=== PATIENT | female | born 1950 | race Caucasian/White ===

== ENCOUNTER 2017-01-25 21:48 | Emergency (ER) | payer MEDICARE, OTHER ==
[~2017-01-25] VITALS: Ht 165.1 cm; Wt 68.0 kg
[2017-01-25 21:49] VITALS: BP 138/68
[2017-01-25] MEDS ORDERED: CALC600T57 PO (22:00)
[2017-01-25] MEDS ORDERED: MUCI600T34 PO (22:00)
[2017-01-25] MEDS ORDERED: VITA200T4 PO (22:00)
[2017-01-25] MEDS ORDERED: BREO1INH3 INH (22:00)
[2017-01-25] MEDS ORDERED: B COTAB6 PO (22:00)
[2017-01-25] MEDS ORDERED: VITATAB74 PO (22:00)
[2017-01-25] MEDS ORDERED: PROP1TAB29 PO (22:00)
[2017-01-25] MEDS ORDERED: MYSO50TA5 PO (22:00)
[2017-01-25] MEDS ORDERED: ACYC200CA PO (22:00)
[2017-01-25] MEDS ORDERED: OMEG1CAP16 PO (22:00)
[2017-01-25] MEDS ORDERED: [UNRECOGNIZED DRUG - CODE] XX (22:00)
[2017-01-25] MEDS ORDERED: PRED20TA PO (22:00)
[2017-01-25] MEDS ORDERED: ASPI81CH32 PO (22:00)
[2017-01-25] MEDS ORDERED: PROA1AER INH (22:00)
[2017-01-25] MEDS ORDERED: HYDRLIQ11 PO (22:00)
== END 2017-01-25 22:39 | disposition left against medical advice (07) ==
LOC: M ED 22:34
DX: R05 Cough (principal); Z53.29 Procedure and treatment not carried out because of patient's decision for other reasons

== ENCOUNTER → 2017-01-25 | Outpatient (REF) | payer MEDICARE, OTHER ==
[~2017-01-25] MED LIST: ACYC200CA PO; ALB2.5NEB INH; ASPI1TAB PO; ASPI81CH32 PO; B COTAB6 PO; BOTO200I INJ; BREO1INH3 INH; BUTACAP3 PO; CALC600T57 PO; DEXA0.5E2 IVP; FLUC10TA PO; GUAI5ELAC PO; HYDRLIQ11 PO; LEVA750T PO; MOXI1TAB PO; MUCI600T34 PO; MYSO50TA5 PO; OMEG100011 PO; OMEG1CAP16 PO; PRED10TA PO; PRED20TA PO; PRIM50TA6 PO; PROA1AER INH; PROP1TAB29 PO; VITA20008 PO; VITA200T4 PO; VITACAP8 PO; VITATAB74 PO; [UNRECOGNIZED DRUG - CODE] XX
== END ==
LOC: M LAB REF 12:49
PROVIDERS: ATTEND Nurse Practitioner Women's Health
DX: J47.9 Bronchiectasis, uncomplicated (principal)

== ENCOUNTER → 2017-01-26 | Outpatient (REF) | payer MEDICARE, OTHER ==
[2017-01-30 15:08] LABS: L PNEUMOPHILIA 1-6 IgG <1:128 (<1:128); L PNEUMOPHILIA 1-6 IgM < 1:16 (< 1:16)
== END ==
LOC: M LAB REF 13:14
PROVIDERS: ATTEND Nurse Practitioner Adult Health
DX: R05 Cough (principal); J47.9 Bronchiectasis, uncomplicated

== ENCOUNTER 2017-01-29 14:03 | Inpatient (IN) | payer MEDICARE, OTHER ==
[~2017-01-29] VITALS: Ht 165.1 cm; Wt 52.5 kg
[~2017-01-29 14:03] MED LIST changes: -ALB2.5NEB INH; -ASPI1TAB PO; -BOTO200I INJ; -BUTACAP3 PO; -DEXA0.5E2 IVP; -FLUC10TA PO; -GUAI5ELAC PO; -LEVA750T PO; -MOXI1TAB PO; -OMEG100011 PO; -PRED10TA PO; -PRIM50TA6 PO; -VITA20008 PO; -VITACAP8 PO
[2017-01-29] MEDS ORDERED: MOXI1TAB PO (14:29)
[2017-01-29] MEDS ORDERED: DEXA0.5E2 IVP (14:29)
[2017-01-29] MEDS ORDERED: PRED10TA PO ×2 (14:29→19:07)
[2017-01-29] MEDS ORDERED: ALBUTEROL SULFATE 2.5 MG/0.5 ML INH NEB SOLN NEB ONE (14:45)
[2017-01-29 14:52] LABS: BASO % 0.1 % (0.0-1.0); EOS # 0.2 K/mm3 (0.0-0.50); LARGE UNSTAINED CELL % 0.2 % (0.0-4.0); LYMPH # 0.4 K/mm3 (1.5-4.5); LYMPH % 2.6 % (24.0-44.0); MEAN CORPUSCULAR HGB CONC 34.7 g/dl (32.0-36.5); MONO # 0.3 K/mm3 (0.0-0.8); MONO % 2.2 % (0.0-5.0); NEUTROPHILS # 13.1 K/mm3 (1.8-7.7); NEUTROPHILS % 93.8 % (36.0-66.0); PLATELET COUNT, AUTOMATED 369 k/mm3 (150-450); RED CELL DISTRIBUTION WIDTH 12.4 % (11.5-14.5)
[2017-01-29 14:59] LABS: ABG BASE EXCESS 1.5 (-2.0-2.0); ABG HCO3 25.1 MEQ/L (22.0-26.0); ABG PARTIAL PRESSURE CO2 36.2 mmHg (35.0-45.0); ABG PARTIAL PRESSURE O2 66.3 mmHg (75.0-100.0); ABG STANDARD HCO3 25.7 MEQ/L (22.0-26.0); ABG TOTAL CO2 26.2 MEQ/L (23.0-31.0); ABG pH (ARTERIAL) 7.459 UNITS (7.350-7.450)
--- NOTE | 2017-01-29 15:02 | REP ---
Chest one-view HISTORY: Cough Comparison: 01/27/2017 Patchy density is present in the right lower lobe consistent with atelectasis or infiltrate. The left lung is clear. The heart is normal in size. The pulmonary vasculature is normal in appearance. Impression: Right lower lobe atelectasis or infiltrate. Signed by Paul Chugn MD 01/29/2017 02:54 P
[2017-01-29 15:21] LABS: ANION GAP 8 MEQ/L (8-16); AST/SGOT 19 U/L (15-37); BLOOD UREA NITROGEN 6 MG/DL (7-18); CALCIUM LEVEL 8.5 MG/DL (8.8-10.2); CARBON DIOXIDE LEVEL 27 MEQ/L (21-32); CHLORIDE LEVEL 94 MEQ/L (98-107); CREATININE FOR GFR 0.61 MG/DL (0.55-1.02); GLOMERULAR FILTRATION RATE > 60.0 (>45); GLUCOSE, FASTING 146 MG/DL (80-110); POTASSIUM SERUM 4.1 MEQ/L (3.5-5.1); SODIUM LEVEL 129 MEQ/L (136-145)
[2017-01-29 15:22] LABS: ALBUMIN 2.9 GM/DL (3.2-5.2); ALBUMIN/GLOBULIN RATIO 0.81 (1.00-1.93); ALKALINE PHOSPHATASE 98 U/L (45-117); ALT/SGPT 57 U/L (12-78); BILIRUBIN,DIRECT 0.1 MG/DL (0.0-0.2); BILIRUBIN,TOTAL 0.3 MG/DL (0.2-1.0); TOTAL PROTEIN 6.5 GM/DL (6.4-8.2)
[2017-01-29] MEDS ORDERED: LevoFLOXacin IV 750 MG in APPROPRIATE DILUENT 1 EA IV ONE (16:45)
[2017-01-29] MEDS ORDERED: NS 500 ML IV ONE (17:00)
--- NOTE | 2017-01-29 18:19 | ECGEPIP ---
Stationary ECG Study [facility] - ED Test Date: 2017-01-29 Pat Name: YUSUF WATKINS Department: Room: - Gender: F Education Program Manager: MS : 1950 Requested By: ADONIS Rousseau Order Number: [id number] Reading MD: Xuan Bland Measurements Intervals [place] Rate: 76 P: 30 OR: 180 QRS: 3 QRSD: 92 T: 22 QT: 370 QTc: 417 Interpretive Statements SINUS RHYTHM NO PRIOR FOR COMPARISON Electronically Signed On 01-29-2017 18:18:54 EDT by Xuan Bland
[2017-01-29] MEDS ORDERED: PRIM50TA6 PO (19:00)
[2017-01-29] MEDS ORDERED: ASPI1TAB PO (19:00)
[2017-01-29] MEDS ORDERED: IPRATROPIUM 0.5MG/ALBUTEROL 2.5MG INH SOL UD 3ML (DUONEB)(J7620) NEB PRN (19:00)
[2017-01-29] MEDS ORDERED: ALB2.5NEB INH (19:03)
[2017-01-29] MEDS ORDERED: BREO1INH3 INH (19:03)
[2017-01-29] MEDS ORDERED: BOTO200I INJ (19:03)
[2017-01-29] MEDS ORDERED: BUTACAP3 PO (19:08)
[2017-01-29] MEDS ORDERED: VITACAP8 PO (19:09)
[2017-01-29] MEDS ORDERED: OMEG100011 PO (19:10)
[2017-01-29] MEDS ORDERED: VITA20008 PO (19:12)
[2017-01-29] MEDS ORDERED: GUAI5ELAC PO (19:15)
[2017-01-29] MEDS: IPRATROPIUM 0.5MG/ALBUTEROL 2.5MG INH SOL UD 3ML (DUONEB)(J7620) NEB SCH ×2 (20:00→23:53)
--- NOTE | 2017-01-29 20:41 | HPEPDOC ---
General Date of Admission Jan 29, 2017 at 18:48 Primary Care Physician: Vivian Barragan Other Providers Pulmonology: Dr. Andrea Richards Attending Physician: JAX CRAFT MD Chief Complaint The patient is a 66-year-old female admitted with a reason for visit of SOB. Source: Patient, Other (daughter) History of Present Illness PRIMARY CARE PROVIDER: Dr. Vivian Barragan CHIEF COMPLAINT: Cough, shortness of breath and worsening weakness HISTORY OF PRESENT ILLNESS: This is a 66-year-old female with past medical history of asthma, bronchiectasis that was recently diagnosed, bronchitis, essential tremor, skin cancer, who presented to the [facility] ED for a chief complaint of worsening cough, shortness of breath, and generalized weakness. Symptoms began around 2 weeks ago initially with a cough that progressively worsened and did not get any better. Patient also developed shortness of breath that had progressively worsened as well, has to sleep in a recliner instead of her bed as she cannot lay flat without a cough, and wakes up in the middle the night short of breath. On January 19, patient reports she went to the urgent care, was diagnosed with bronchitis. Then on January 26, patient went to the pulmonology office and saw the PA at Dr. Richards's office, labs were taken and are still pending, a chest x-ray done there had shown a problem with the left lower lobe with "left lower lobe sacs that were collapsed" as per daughter. At the office, patient was given an unspecified antibiotic, prescribed prednisone, and a cough syrup with codeine. Patient states she had started ciprofloxacin on January 27. Cough got even worse and the patient went to [facility] in [facility] on January 28 and was told that she was on the wrong antibiotic. Was diagnosed with pneumonia there, ciprofloxacin and Tessalon Perles were stopped, and the patient was started on Avelox and Robitussin AC for suspected pneumonia on chest x-ray. Was recommended to rest and drink plenty of fluids over the weekend. Was given 9 tablets of Avelox. So far, has taken 2 doses of Avelox. Patient has also been taking the prednisone which she states alleviates her coughing symptoms. Patient reports that she has chest wall pain after coughing, feels very weak even though she exercises regularly when she is not sick and drinks plenty of fluids even now. He denies fevers, chills, cardiac chest pain, nausea, vomiting , sore throat, runny nose, headache, dizziness, abdominal pain, diarrhea, she hematochezia, hematuria, dysuria. Admits to weakness in her extremities. Has become so weak that she cannot get out of the bed without help from her daughter to stand and walk otherwise patient's daughter reports patient couldn' t fall if not helped. Weakness is severe. Admits to thirst. Denies urinary incontinence. Admits to back pain. Denies muscle aches/pains. Patient and daughter report that patient was diagnosed with bronchiectasis on . She has had bronchitis where she will get sick and had a cough for 3 months, this gets better, but then comes back, and is recurring and severe. Last episode of bronchitis was June at [facility] until the new year August 2016. Patient presented today to the [facility] ER after no improvement in her condition and worsening of her cough. Patient was given an IV bolus of normal saline, and nebulized albuterol treatment, and one dose of IV levofloxacin. Labs were remarkable for an elevated lipase 14, hemoglobin 11.6, neutrophil percent count of 92.8, and his phone number of 13.1, sodium 129, BUN of 6 fasting glucose of 146, lactic acid 1.0, calcium of 8.5, normal liver enzymes, negative cardiac markers, a BNP of 27.9, and albumin low at 2.9, a total protein of 6.5, and ABG: PH 7.459, PCO2 of 36.2, PaO2 of 66.3, and a serum bicarbonate level of 27. ABG is relatively unremarkable. MEDICATIONS: Please see below for complete list of scheduled home medications. Of note, patient states that she uses fluorouracil cream on her face and back for skin cancer. Of note, patient was keeps Botox injection and neck for essential tremor. Has been taking 10 mg of prednisone tablets prescribed from the pulmonology office. Has a rescue albuterol inhaler for when necessary use. Has been using nebulized albuterol every 4 hours even though she should be using it only twice a day. Also uses nebulizers. ALLERGIES: Codeine, but can have Robitussin with codeine in this if taken in small amounts. PAST MEDICAL HISTORY: Asthma Bronchiectasis Bronchitis Essential tremor Skin cancer A reported problem of the throat muscles that push fluid comp/weekin bilateral sclerae and causing patient to choke, and vomit up food. Abnormal Thyroid Labs: recently reported via daughter PAST SURGICAL HISTORY: Total abdominal hysterectomy at age 29 1979 SOCIAL HISTORY: Lives with at home. Has 2 daughters. Denies smoking: Never. Drinks one glass of wine at night and on occasion socially but never has been a heavy drinker and lifetime. No illicit drug use. No pets. No sick contacts. No recent travel. Healthcare proxy: Tonio, daughter Alvina, and older daughter Citlaly Immunizations: Up-to-date with pneumonia vaccines. Received shingles vaccine 09/2014. Received flu vaccine May 2016. Receive Prevnar 13 and 07/18/2015. Receive posterior pneumonia shot and October 2016. FAMILY HISTORY: Father: of lung cancer Mother: of melanoma Brother: Multiple myeloma Niece: Thyroid cancer CODE STATUS: Full Code REVIEW OF SYSTEMS: All review of systems are negative except for those listed above in HPI. PHYSICAL EXAMINATION: Vitals: T: 98.5 BP: 131/63 RR: 18 P: 80 O2 Saturation: 91% room air, 89% on room air on monitoring ER General: Awake, alert, oriented 3. Pleasant and cooperative elderly female. In no acute distress. Very frequent coughing is noted when patient speaks in full sentences and patient cannot complete sentences due to cough. HEENT: Head: Normocephalic atraumatic. Eyes: Sclera nonicteric. Ears: TMs intact with good light reflex bilaterally, no erythema or drainage noted. Nose: No external lesions Throat: no pharyngeal erythema or exudates, moist buccal mucosa Neck: Supple. Respiratory: Mainly clear to auscultation bilaterally, slightly diminished breath sounds on the right middle and lower lobe. Some faint inspiratory wheezing present in the middle and lower lobe on the left. No use of accessory muscles seen, patient is very uncomfortable speaking in full sentences and has a coughing fit when she tries to answer questions in depth. Cardiovascular: regular rate and rhythm, with no murmurs, rubs or gallops. Abdomen: soft, nontender, nondistended, no hepatosplenomegaly appreciated. Bowel sounds present. Extremities: No swelling in either lower extremity bilaterally Musculoskeletal: Unable to perform accurately. Muscle strength testing in upper and lower extremities limited due to extreme weakness exhibited by patient especially on right-sided upper and lower extremities. Seems to be 2-3/5 muscle strength in each extremity bilaterally. Neurological: No focal neurologic deficits appreciated. Integumentary: skin free from rashes, lesions, abrasions Vascular: +2 dorsalis pedis and radial pulses bilaterally. LABORATORY DATA: Please see below. MICROBIOLOGY: Blood cultures and sputum cultures pending. ELECTROCARDIOGRAM: Sinus rhythm with no ST-T wave abnormalities seen. Ventricular rate of 76. RADIOLOGY: Chest x-ray showed right lower lobe atelectasis or infiltrate ASSESSMENT: This is a 66-year-old female with past medical history of asthma, bronchitis, bronchiectasis that was newly diagnosed recently this year in September 28 2016 by pulmonology, and is presenting to the [facility] for progressively worsening cough, shortness of breath, and generalized weakness. Presumed diagnosis is acute hypoxic respiratory failure secondary to community-acquired pneumonia. PLAN: -Acute hypoxic respiratory failure secondary to right lower lobe community- acquired pneumonia: White blood cell count elevated at 14, chest x-ray positive for right lower lobe infiltrate, satting in low 90s on room air. Will obtain sputum and blood cultures, respiratory panel. Will start supplemental oxygen and titrate for saturations 88% to 92% ideally. We'll treat with Levaquin, IV Solu-Medrol, nebulizers every 4 hours and PRN. Will encourage incentive spirometry. Will add mucolytic guaifenesin. We'll monitor daily CBCs and BMPs. We'll monitor clinically for respiratory status. -Chest Wall Pain/Costochondritis secondary to Cough: will start ibuprofen PO PRN pain. -Hyponatremia: Sodium 129. Monitor clinically clinically and obtain BMP tomorrow. Presumed to be a euvolemic vs. hypovolemic. Will obtain serum osmolality to determine possible etiology and treat as appropriate. -Leukocytosis: We'll obtain blood cultures, and serial CBCs. We'll monitor for fevers and other clinical signs/symptoms. -Normocytic anemia: Hemoglobin 11.6 and MCV of 95. May consider obtaining iron studies. Patient is short of breath as well. -Hypoglycemia: Glucose of 146. This may be secondary to prednisone as well as inflammatory reaction. Monitor BMPs daily. -Abnormal Thyroid Labs (reported by daughter): Will check TSH and Free T4. -Continue home medications for chronic medical problems. -DVT prophylaxis: Heparin FULL CODE STATUS Immunizations as per protocol. My preceptor for this patient encounter was Dr. Jax Craft, and was physically present in the building during the encounter and was fully available. As needed , all aspects of the patient interview, examination, medical decision making process, and medical care plan development were reviewed and approved by the preceptor. Preceptor is aware and concurs with the plan as stated in the body of this note and will attest to such by his/her cosignature. Home Medications Scheduled (Calcium + D3 600-200 mg-Unit) 1 Tab Tab, 1 TAB PO DAILY, (Reported) (B Complex) 1 Cap Cap, 1 CAP PO DAILY, (Reported) Acyclovir (Zovirax) 200 Mg Cap, 200 MG PO 3XW, (Reported) MON,WED,FRI- MAY TAKE MORE IF NEEDED Alpha Tocopheryl Acid Succinat (Vitamin E) 200 Unit Tab, 200 UNIT PO DAILY, ( Reported) Aspirin (Aspirin 81) 81 Mg Tab, 81 MG PO QPM, (Reported) 1600 Cholecalciferol (Vitamin D3) 2,000 Unit Tab, 2,000 UNIT PO DAILY, (Reported) Fluticasone/Vilanterol (Breo Ellipta 200-25 Mcg/INH) 1 Inh Inh, 1 PUFF INH DAILY , (Reported) HAS NOT BEEN TAKING SINCE ON PREDNISONE- WILL RESTART WHEN FINISHED Moxifloxacin Hydrochloride (Moxifloxacin HCl) 400 Mg Tab, 1 TAB PO DAILY, ( Reported) FILLED / FOR 9 DAYS [place] 3 Polyunsat Fatty Acids ([place] 3 1000 mg) 1 Cap Cap, 1 CAP PO DAILY, ( Reported) Onabotulinumtoxina (Botox) Unknown Strength Inj, Unknown Dose INJ ASDIRECTED, ( Reported) EVERY 4 MONTHS- DUE THIS MONTH Prednisone (Prednisone) 10 Mg Tab, 10 MG PO ASDIRECTED, (Reported) STARTING 01/30... 30MG FOR 3 DAYS 20MG FOR 3 DAYS 10MG FOR 3 DAYS Primidone (Mysoline) 50 Mg Tab, 200 MG PO DAILY, (Reported) Primidone (Primidone) 50 Mg Tab, 100 MG PO QPM, (Reported) 1600 Propranolol HCl (Propranolol HCl) 20 Mg Tab, 20 MG PO BID, (Reported) AM,1600 Scheduled PRN Albuterol Sulfate (Proair Hfa) 108 Mcg/Act Aer, 2 PUFF INH Q4H PRN for SOB/COUGH , (Reported) Albuterol Sulfate (Albuterol Sulfate) 2.5 Mg/0.5 Ml Neb, 2.5 MG INH Q4H PRN for SHORTNESS OF BREATH, (Reported) Butalbital/Asa/Caffeine (Butalbital/ASA/Caffeine 50-325-40 mg) 1 Cap Cap, 1 CAP PO PRN PRN for MIGRAINE, (Reported) Guaifenesin/Codeine (Guaifenesin/Codeine 100-10 mg/5Ml) 5 Ml Syrp, 2.5 ML PO Q2H PRN for COUGH, (Reported) Allergies Coded Allergies: Codeine (Verified Adverse Reaction, Intermediate, lightheadedness, 01/29/17) BUT PT TOLERATES 2.5ML OF ROBITUSSIN AC AT HOME WITHOUT ISSUE PER MED HISTORIAN (RN) Vital Signs Vital Signs Date Time Temp Pulse Resp B/P (MAP) Pulse Ox O2 Delivery O2 Flow Rate FiO2 01/29/17 19:18 84 18 94 Nasal Cannula 2.0 01/29/17 19:02 121/68 (85) 01/29/17 14:46 91 01/29/17 14:05 98.5 Laboratory Data Labs 24H Laboratory Tests 2 01/29/17 14:35: White Blood Count 14.0H, Red Blood Count 3.51L, Hemoglobin 11.6L, Hematocrit 33.4L, Mean Corpuscular Volume 95.0, Mean Corpuscular Hemoglobin 33.0, Mean Corpuscular Hemoglobin Concent 34.7, Red Cell Distribution Width 12.4, Platelet Count 369, Neutrophils (%) (Auto) 93.8H, Lymphocytes (%) (Auto) 2.6L, Monocytes (%) (Auto) 2.2, Eosinophils (%) (Auto) 1.0, Basophils (%) (Auto) 0.1, Neutrophils # (Auto) 13.1H, Lymphocytes # (Auto) 0.4L, Monocytes # (Auto) 0.3, Eosinophils # (Auto) 0.2, Basophils # (Auto) 0.0, Large Unclassified Cells % 0.2 , Large Unclassified Cells # 0.0 01/29/17 14:38: Anion Gap 8, Glomerular Filtration Rate > 60.0, Lactic Acid Level 1.0, Calcium Level 8.5L, Aspartate Amino Transf (AST/SGOT) 19, Alanine Aminotransferase (ALT/ SGPT) 57, Alkaline Phosphatase 98, Total Bilirubin 0.3, Direct Bilirubin 0.1, Total Creatine Kinase 41, Creatine Kinase MB 1.0, Creatine Kinase MB Relative Index 2.43, Troponin I < 0.02, B-Type Natriuretic Peptide 27.9, Total Protein 6.5, Albumin 2.9L, Albumin/Globulin Ratio 0.81L 01/29/17 14:53: Blood Gas Bicarbonate Standard 25.7, Arterial Blood pH 7.459H, Arterial Blood Partial Pressure CO2 36.2, Arterial Blood Partial Pressure O2 66.3L, Arterial Blood Total CO2 26.2, Arterial Blood HCO3 25.1, Arterial Blood Base Excess 1.5, Arterial Blood Oxygen Saturation 93.7L CBC/BMP Laboratory Tests 01/29/17 14:35 Red Blood Count 3.51 L, Mean Corpuscular Volume 95.0, Mean Corpuscular Hemoglobin 33.0, Mean Corpuscular Hemoglobin Concent 34.7, Red Cell Distribution Width 12.4, Neutrophils (%) (Auto) 93.8 H, Lymphocytes (%) (Auto) 2.6 L, Monocytes (%) (Auto) 2.2, Eosinophils (%) (Auto) 1.0, Basophils (%) (Auto ) 0.1, Neutrophils # (Auto) 13.1 H, Lymphocytes # (Auto) 0.4 L, Monocytes # ( Auto) 0.3, Eosinophils # (Auto) 0.2, Basophils # (Auto) 0.0 01/29/17 14:38 Plan / VTE VTE Prophylaxis Ordered?: Yes (heparin) BRUNO MAYNARD OGME-1 Jan 29, 2017 20:41
[2017-01-29 20:45] VITALS: BP 161/67
[2017-01-29] MEDS: methylPREDNISolone INJ 125 MG/2 ML VIAL (J2930) IV SCH (21:13)
[2017-01-29] MEDS: HEPARIN SOD (PORCINE) 5000 UNITS/ML VIAL SC SCH (21:13)
[2017-01-29] MEDS: guaiFENesin SYRUP 200 MG/10 ML UDC PO PRN (21:20)
[2017-01-29] MEDS: IBUPROFEN 400 MG TAB PO PRN (21:20)
[2017-01-30] MEDS: IPRATROPIUM 0.5MG/ALBUTEROL 2.5MG INH SOL UD 3ML (DUONEB)(J7620) NEB SCH ×5 (04:00→19:53)
[2017-01-30] MEDS: IBUPROFEN 400 MG TAB PO PRN (05:20)
[2017-01-30] MEDS: HEPARIN SOD (PORCINE) 5000 UNITS/ML VIAL SC SCH ×2 (05:20→13:51)
[2017-01-30] MEDS: guaiFENesin SYRUP 200 MG/10 ML UDC PO PRN (05:20)
[2017-01-30 05:42] LABS: BASO % 0.2 % (0.0-1.0); EOS # 0.1 K/mm3 (0.0-0.50); EOS % 0.8 % (0.0-3.0); LARGE UNSTAINED CELL # 0.1 K/mm3 (0.0-0.4); LARGE UNSTAINED CELL % 0.8 % (0.0-4.0); LYMPH # 0.9 K/mm3 (1.5-4.5); LYMPH % 7.6 % (24.0-44.0); MEAN CORPUSCULAR VOLUME 97.1 fl (80.0-96.0); MONO # 0.4 K/mm3 (0.0-0.8); MONO % 3.6 % (0.0-5.0); NEUTROPHILS # 9.7 K/mm3 (1.8-7.7); PLATELET COUNT, AUTOMATED 341 k/mm3 (150-450); RED CELL DISTRIBUTION WIDTH 12.3 % (11.5-14.5); WHITE BLOOD COUNT 11.1 K/mm3 (4.0-10.0)
[2017-01-30 05:54] LABS: ANION GAP 9 MEQ/L (8-16); BLOOD UREA NITROGEN 8 MG/DL (7-18); CALCIUM LEVEL 8.7 MG/DL (8.8-10.2); CARBON DIOXIDE LEVEL 26 MEQ/L (21-32); CHLORIDE LEVEL 96 MEQ/L (98-107); CREATININE FOR GFR 0.69 MG/DL (0.55-1.02); GLOMERULAR FILTRATION RATE > 60.0 (>45); GLUCOSE, FASTING 112 MG/DL (80-110); POTASSIUM SERUM 4.2 MEQ/L (3.5-5.1); SODIUM LEVEL 131 MEQ/L (136-145)
[2017-01-30 06:00] VITALS: BP 161/62
[2017-01-30] MEDS: methylPREDNISolone INJ 125 MG/2 ML VIAL (J2930) IV SCH ×2 (08:30→20:25)
[2017-01-30] MEDS: NS 1,000 ML IV SCH ×2 (08:36→20:25)
[2017-01-30] MEDS ORDERED: PRIMIDONE 50 MG TAB PO SCH (09:00)
[2017-01-30] MEDS ORDERED: PROPRANOLOL 20 MG TAB PO SCH (09:00)
[2017-01-30] MEDS: guaiFENesin/CODEINE SYRUP 5 ML UDC PO PRN ×3 (09:44→18:34)
[2017-01-30] MEDS ORDERED: ISOVUE-370 76% 100ML VIAL (Q9967) As Ordered ONE (11:32)
[2017-01-30] MEDS: ONDANSETRON 4MG/2ML VIAL (J2405) IV PRN (12:28)
[2017-01-30] MEDS: MORPHINE 2 MG/ML 1ML SYRINGE IV PRN ×2 (12:29→16:28)
--- NOTE | 2017-01-30 13:48 | REP ---
CT ANGIO CHEST: HISTORY: Rule out pulmonary embolism. CONTRAST: Isovue-370, 100 mL. COMPARISON: CT chest, 08/24/2016. There are no filling defects in the main, right, and left pulmonary arteries or their branches. Patchy densities are present in the lower lobes, consistent with bibasilar atelectasis or infiltrates. A 6 mm parenchymal nodule is present in the left lower lobe seen on image #57 of 86. There is no pleural effusion. An enlarged lymph node, 1.2 cm in width, is present in the mediastinum. Several small lymph nodes, less than 1 cm in size are present in the mediastinum. The heart is normal in size. IMPRESSION: 1. There is no pulmonary embolism. 2. Bibasilar atelectasis or infiltrates. 3. Small 6 mm left lower lobe parenchymal nodule, unchanged in size compared to the previous study. Signed by Paul Chung MD 01/30/2017 01:56 P
[2017-01-30 14:00] VITALS: BP 100/51
--- NOTE | 2017-01-30 14:44 | IPNPDOC ---
Text Note Date of Service The patient was seen on 01/30/17. NOTE Subjective: Pt c/o chest wall pain upon coughing. SOB improving. Generalized weakness improving. States she was noted to have right sided weakness yesterday , but is refusing CT Head/MRI brain. Objective: Vitals: (see below) General: No acute distress, laying comfortably in bed. HEENT: Moist mucous membranes. Neck: No JVD or lymphadenopathy Cardiac: RRR, No murmurs Pulm: Coarse crackles at the bases b/l. Mild exp wheezing. No rhonchi Abd: NT/ND + BS Ext: No edema or cyanosis Neuro: Strength 5/5 BUE and BLE. CN 2-12 intact. F to N intact Negative pronator drift. Negative Babinki. Labs (see below) Images: CTA Chest 01/30/17 There are no filling defects in the main, right, and left pulmonary arteries or their branches. Patchy densities are present in the lower lobes, consistent with bibasilar atelectasis or infiltrates. A 6 mm parenchymal nodule is present in the left lower lobe seen on image #57 of 86. There is no pleural effusion. An enlarged lymph node, 1.2 cm in width, is present in the mediastinum. Several small lymph nodes, less than 1 cm in size are present in the mediastinum. The heart is normal in size. IMPRESSION: 1. There is no pulmonary embolism. 2. Bibasilar atelectasis or infiltrates. 3. Small 6 mm left lower lobe parenchymal nodule, unchanged in size compared to the previous study. Assessment/Plan 1. PNA 2/2 H. Influenza/ Strep Constellatus from 01/25- sputum cx, with h/o bronchiectasis. S/p cipro outpt. Has been sick for 2 weeks. Leukocytosis improving now. Afebrile. Cont IV levaquin. IVF. F/u blood cx. Robitussin DM. 2. Costochondritis - on ibuprofen. Morphine PRN. CTA negative for PE. 3. Hyponatremia - likely hypovolemic. Started on IVF. TSH wnl. Improving. Cont to monitor. 4. Normocytic anemia - chronic - cont to monitor. No need for transfusion at this time. 5. H/o Asthma vs COPD - on steroids/nebs. 6. ? noted to have right sided weakness - no overt focal deficits on exam. Pt refusing CT Head/MRI Brain. 7. Essential tremor - on Primidone DVT prophy: Enoxaparin I have had an extensive conversation with the patient, , and daughters, and have answered all their questions to their satisfaction. VS,Fishbone, I+O VS, Fishbone, I+O Laboratory Tests 01/29/17 14:35 Red Blood Count 3.51 L, Mean Corpuscular Volume 95.0, Mean Corpuscular Hemoglobin 33.0, Mean Corpuscular Hemoglobin Concent 34.7, Red Cell Distribution Width 12.4, Neutrophils (%) (Auto) 93.8 H, Lymphocytes (%) (Auto) 2.6 L, Monocytes (%) (Auto) 2.2, Eosinophils (%) (Auto) 1.0, Basophils (%) (Auto ) 0.1, Neutrophils # (Auto) 13.1 H, Lymphocytes # (Auto) 0.4 L, Monocytes # ( Auto) 0.3, Eosinophils # (Auto) 0.2, Basophils # (Auto) 0.0 01/29/17 14:38 01/30/17 05:22 Red Blood Count 3.40 L, Mean Corpuscular Volume 97.1 H, Mean Corpuscular Hemoglobin 33.0, Mean Corpuscular Hemoglobin Concent 34.0, Red Cell Distribution Width 12.3, Neutrophils (%) (Auto) 87.0 H, Lymphocytes (%) (Auto) 7.6 L, Monocytes (%) (Auto) 3.6, Eosinophils (%) (Auto) 0.8, Basophils (%) (Auto ) 0.2, Neutrophils # (Auto) 9.7 H, Lymphocytes # (Auto) 0.9 L, Monocytes # (Auto ) 0.4, Eosinophils # (Auto) 0.1, Basophils # (Auto) 0.0, Calcium Level 8.7 L Vital Signs Date Time Temp Pulse Resp B/P (MAP) Pulse Ox O2 Delivery O2 Flow Rate FiO2 01/30/17 12:39 18 01/30/17 12:13 Room Air 01/30/17 09:00 95 161/62 01/30/17 06:00 98.2 94 01/29/17 19:18 2.0 01/29/17 14:46 91 I&O- Last 24 Hours up to 6 AM 01/30/17 06:00 Intake Total 480 ml Output Total 0 ml Balance 480 ml REECE LOWE MD Jan 30, 2017 14:44
[2017-01-30] MEDS: PRIMIDONE 50 MG TAB PO SCH (16:24)
[2017-01-30] MEDS: PROPRANOLOL 20 MG TAB PO SCH (16:27)
[2017-01-30 16:58] LABS: BASO % 0.1 % (0.0-1.0); EOS % 0.2 % (0.0-3.0); LARGE UNSTAINED CELL # 0.1 K/mm3 (0.0-0.4); LARGE UNSTAINED CELL % 0.6 % (0.0-4.0); LYMPH # 0.8 K/mm3 (1.5-4.5); LYMPH % 6.9 % (24.0-44.0); MEAN CORPUSCULAR HEMOGLOBIN 33.2 pg (27.0-33.0); MEAN CORPUSCULAR HGB CONC 34.1 g/dl (32.0-36.5); MEAN CORPUSCULAR VOLUME 97.3 fl (80.0-96.0); MONO # 0.5 K/mm3 (0.0-0.8); MONO % 4.1 % (0.0-5.0); NEUTROPHILS # 10.8 K/mm3 (1.8-7.7); NEUTROPHILS % 88.1 % (36.0-66.0); PLATELET COUNT, AUTOMATED 388 k/mm3 (150-450); RED CELL DISTRIBUTION WIDTH 12.1 % (11.5-14.5); WHITE BLOOD COUNT 12.2 K/mm3 (4.0-10.0)
[2017-01-30 17:12] LABS: ANION GAP 5 MEQ/L (8-16); BLOOD UREA NITROGEN 12 MG/DL (7-18); CALCIUM LEVEL 8.2 MG/DL (8.8-10.2); CARBON DIOXIDE LEVEL 28 MEQ/L (21-32); CHLORIDE LEVEL 99 MEQ/L (98-107); CREATININE FOR GFR 0.72 MG/DL (0.55-1.02); GLOMERULAR FILTRATION RATE > 60.0 (>45); GLUCOSE, FASTING 121 MG/DL (80-110); MAGNESIUM LEVEL 2.3 MG/DL (1.8-2.4); POTASSIUM SERUM 4.7 MEQ/L (3.5-5.1); SODIUM LEVEL 132 MEQ/L (136-145)
[2017-01-30 17:37] LABS: OSMOLALITY URINE 157 MOSM/KG (500-800)
[2017-01-30] MEDS: LevoFLOXacin IV 750 MG in APPROPRIATE DILUENT 1 EA IV SCH (18:34)
[2017-01-30] MEDS: ASPIRIN 81 MG ENTERIC TAB PO SCH (20:18)
[2017-01-30 22:00] VITALS: BP 140/75
[2017-01-31] MEDS: MORPHINE 2 MG/ML 1ML SYRINGE IV PRN ×6 (00:55→21:39)
[2017-01-31] MEDS: guaiFENesin/CODEINE SYRUP 5 ML UDC PO PRN ×5 (01:03→17:56)
[2017-01-31] MEDS: IPRATROPIUM 0.5MG/ALBUTEROL 2.5MG INH SOL UD 3ML (DUONEB)(J7620) NEB SCH ×7 (03:46→23:56)
[2017-01-31 06:00] VITALS: BP 129/61
[2017-01-31] MEDS: NS 1,000 ML IV SCH ×2 (06:08→11:59)
[2017-01-31 06:49] LABS: ANION GAP 4 MEQ/L (8-16); BLOOD UREA NITROGEN 10 MG/DL (7-18); CALCIUM LEVEL 8.8 MG/DL (8.8-10.2); CARBON DIOXIDE LEVEL 29 MEQ/L (21-32); CHLORIDE LEVEL 103 MEQ/L (98-107); CREATININE FOR GFR 0.72 MG/DL (0.55-1.02); GLOMERULAR FILTRATION RATE > 60.0 (>45); GLUCOSE, FASTING 92 MG/DL (80-110); POTASSIUM SERUM 4.2 MEQ/L (3.5-5.1); SODIUM LEVEL 136 MEQ/L (136-145)
[2017-01-31 06:57] LABS: BASO % 0.3 % (0.0-1.0); EOS % 0.3 % (0.0-3.0); LARGE UNSTAINED CELL # 0.1 K/mm3 (0.0-0.4); LARGE UNSTAINED CELL % 0.5 % (0.0-4.0); LYMPH # 1.6 K/mm3 (1.5-4.5); LYMPH % 14.3 % (24.0-44.0); MEAN CORPUSCULAR HEMOGLOBIN 32.6 pg (27.0-33.0); MEAN CORPUSCULAR HGB CONC 33.3 g/dl (32.0-36.5); MEAN CORPUSCULAR VOLUME 97.9 fl (80.0-96.0); MONO # 0.5 K/mm3 (0.0-0.8); NEUTROPHILS # 8.6 K/mm3 (1.8-7.7); NEUTROPHILS % 79.6 % (36.0-66.0); PLATELET COUNT, AUTOMATED 408 k/mm3 (150-450); RED CELL DISTRIBUTION WIDTH 12.4 % (11.5-14.5); WHITE BLOOD COUNT 10.8 K/mm3 (4.0-10.0)
[2017-01-31] MEDS: PROPRANOLOL 20 MG TAB PO SCH ×2 (08:06→15:57)
[2017-01-31] MEDS: methylPREDNISolone INJ 125 MG/2 ML VIAL (J2930) IV SCH ×2 (08:07→20:11)
[2017-01-31] MEDS: PRIMIDONE 50 MG TAB PO SCH ×2 (08:07→15:57)
[2017-01-31] MEDS: ENOXAPARIN 40 MG/0.4 ML SYRINGE (J1650) SC SCH (08:08)
[2017-01-31] MEDS ORDERED: MOM 30ML SUSPENSION UDC PO PRN (09:15)
[2017-01-31] MEDS: DOCUSATE SODIUM 100 MG CAP PO SCH ×2 (10:14→20:11)
[2017-01-31] MEDS: IBUPROFEN 400 MG TAB PO PRN (10:16)
[2017-01-31] MEDS: MIRALAX *UNIT DOSE* 17GM PACKET PO SCH ×2 (10:16→20:12)
[2017-01-31] MEDS: ONDANSETRON 4MG/2ML VIAL (J2405) IV PRN (10:16)
--- NOTE | 2017-01-31 13:49 | IPNPDOC ---
Text Note Date of Service The patient was seen on 01/31/17. NOTE Subjective: Cough/SOB improving. Generalized weakness resolved. Objective: Vitals: (see below) General: No acute distress, laying comfortably in bed. HEENT: Moist mucous membranes. Neck: No JVD or lymphadenopathy Cardiac: RRR, No murmurs Pulm: Coarse crackles at the bases b/l. Mild exp wheezing. No rhonchi Abd: NT/ND + BS Ext: No edema or cyanosis Neuro: Strength 5/5 BUE and BLE. CN 2-12 intact. F to N intact Negative pronator drift. Negative Babinki. Labs (see below) Images: CTA Chest 01/30/17 There are no filling defects in the main, right, and left pulmonary arteries or their branches. Patchy densities are present in the lower lobes, consistent with bibasilar atelectasis or infiltrates. A 6 mm parenchymal nodule is present in the left lower lobe seen on image #57 of 86. There is no pleural effusion. An enlarged lymph node, 1.2 cm in width, is present in the mediastinum. Several small lymph nodes, less than 1 cm in size are present in the mediastinum. The heart is normal in size. IMPRESSION: 1. There is no pulmonary embolism. 2. Bibasilar atelectasis or infiltrates. 3. Small 6 mm left lower lobe parenchymal nodule, unchanged in size compared to the previous study. Assessment/Plan 1. PNA 2/2 H. Influenza/ Strep Constellatus from 01/25- sputum cx, with h/o bronchiectasis. S/p cipro outpt. Has been sick for 2 weeks. Leukocytosis/CRP improving now. Afebrile. Spoke with Dr. Michael regarding sputum cx and will cont IV levaquin. IVF. F/u blood cx. Robitussin DM. 2. Costochondritis - on ibuprofen. Morphine PRN. CTA negative for PE. 3. Hyponatremia - likely hypovolemic. Resolved. s/p IVF. TSH wnl. Improving. Cont to monitor. 4. Normocytic anemia - chronic - cont to monitor. No need for transfusion at this time. 5. H/o Asthma vs COPD - on steroids/nebs. 6. ? noted to have right sided weakness - no focal deficits on exam. Pt refusing CT Head/MRI Brain. 7. Essential tremor - on Primidone DVT prophy: Enoxaparin Participating with PT. Failed outpt Abx - will need additional 24-48hr of IV Abx prior to d/c. VS,Fishbone, I+O VS, Fishbone, I+O Laboratory Tests 01/30/17 16:36 Red Blood Count 3.56 L, Mean Corpuscular Volume 97.3 H, Mean Corpuscular Hemoglobin 33.2 H, Mean Corpuscular Hemoglobin Concent 34.1, Red Cell Distribution Width 12.1, Neutrophils (%) (Auto) 88.1 H, Lymphocytes (%) (Auto) 6.9 L, Monocytes (%) (Auto) 4.1, Eosinophils (%) (Auto) 0.2, Basophils (%) (Auto ) 0.1, Neutrophils # (Auto) 10.8 H, Lymphocytes # (Auto) 0.8 L, Monocytes # ( Auto) 0.5, Eosinophils # (Auto) 0.0, Basophils # (Auto) 0.0, Calcium Level 8.2 L 01/31/17 06:17 Red Blood Count 3.48 L, Mean Corpuscular Volume 97.9 H, Mean Corpuscular Hemoglobin 32.6, Mean Corpuscular Hemoglobin Concent 33.3, Red Cell Distribution Width 12.4, Neutrophils (%) (Auto) 79.6 H, Lymphocytes (%) (Auto) 14.3 L, Monocytes (%) (Auto) 5.0, Eosinophils (%) (Auto) 0.3, Basophils (%) ( Auto) 0.3, Neutrophils # (Auto) 8.6 H, Lymphocytes # (Auto) 1.6, Monocytes # ( Auto) 0.5, Eosinophils # (Auto) 0.0, Basophils # (Auto) 0.0, Calcium Level 8.8 Vital Signs Date Time Temp Pulse Resp B/P (MAP) Pulse Ox O2 Delivery O2 Flow Rate FiO2 01/31/17 10:27 18 01/31/17 09:21 Room Air 01/31/17 08:06 67 129/61 01/31/17 06:00 98.2 97 01/29/17 19:18 2.0 01/29/17 14:46 91 I&O- Last 24 Hours up to 6 AM 01/31/17 06:00 Intake Total 1440 ml Output Total 1900 ml Balance -460 ml REECE LOWE MD Jan 31, 2017 13:49
[2017-01-31 14:30] VITALS: BP 130/62
[2017-01-31] MEDS: LevoFLOXacin IV 750 MG in APPROPRIATE DILUENT 1 EA IV SCH (17:46)
[2017-01-31] MEDS: ASPIRIN 81 MG ENTERIC TAB PO SCH (20:11)
[2017-01-31 22:00] VITALS: BP 131/62
[2017-02-01] MEDS: MORPHINE 2 MG/ML 1ML SYRINGE IV PRN ×2 (03:07→07:38)
[2017-02-01] MEDS: NS 1,000 ML IV SCH (03:08)
[2017-02-01] MEDS: IPRATROPIUM 0.5MG/ALBUTEROL 2.5MG INH SOL UD 3ML (DUONEB)(J7620) NEB SCH ×5 (04:00→19:47)
[2017-02-01 06:00] VITALS: BP 139/63
[2017-02-01] MEDS: guaiFENesin/CODEINE SYRUP 5 ML UDC PO PRN ×3 (06:35→20:01)
[2017-02-01 06:50] LABS: BASO % 0.2 % (0.0-1.0); EOS % 0.5 % (0.0-3.0); LARGE UNSTAINED CELL # 0.1 K/mm3 (0.0-0.4); LARGE UNSTAINED CELL % 0.9 % (0.0-4.0); LYMPH # 1.6 K/mm3 (1.5-4.5); LYMPH % 17.4 % (24.0-44.0); MEAN CORPUSCULAR HEMOGLOBIN 32.6 pg (27.0-33.0); MEAN CORPUSCULAR HGB CONC 32.9 g/dl (32.0-36.5); MEAN CORPUSCULAR VOLUME 98.8 fl (80.0-96.0); MONO # 0.5 K/mm3 (0.0-0.8); NEUTROPHILS # 6.5 K/mm3 (1.8-7.7); NEUTROPHILS % 74.9 % (36.0-66.0); PLATELET COUNT, AUTOMATED 418 k/mm3 (150-450); RED CELL DISTRIBUTION WIDTH 12.4 % (11.5-14.5); WHITE BLOOD COUNT 8.6 K/mm3 (4.0-10.0)
[2017-02-01 07:00] LABS: ANION GAP 5 MEQ/L (8-16); BLOOD UREA NITROGEN 10 MG/DL (7-18); CARBON DIOXIDE LEVEL 29 MEQ/L (21-32); CHLORIDE LEVEL 103 MEQ/L (98-107); CREATININE FOR GFR 0.66 MG/DL (0.55-1.02); GLOMERULAR FILTRATION RATE > 60.0 (>45); GLUCOSE, FASTING 94 MG/DL (80-110); POTASSIUM SERUM 4.1 MEQ/L (3.5-5.1); SODIUM LEVEL 137 MEQ/L (136-145)
[2017-02-01] MEDS: MIRALAX *UNIT DOSE* 17GM PACKET PO SCH ×2 (07:38→20:02)
[2017-02-01] MEDS: methylPREDNISolone INJ 125 MG/2 ML VIAL (J2930) IV SCH (07:38)
[2017-02-01] MEDS: PRIMIDONE 50 MG TAB PO SCH ×2 (07:39→16:39)
[2017-02-01] MEDS: DOCUSATE SODIUM 100 MG CAP PO SCH ×2 (07:39→20:01)
[2017-02-01] MEDS: ENOXAPARIN 40 MG/0.4 ML SYRINGE (J1650) SC SCH (07:39)
[2017-02-01] MEDS: LACTOBACILLUS ACIDOPHILUS CAP (BACID) PO SCH (07:39)
[2017-02-01] MEDS: PROPRANOLOL 20 MG TAB PO SCH ×2 (07:40→16:39)
[2017-02-01 14:00] VITALS: BP 118/57
--- NOTE | 2017-02-01 17:30 | IPN ---
DATE: 02/01/2017 SUBJECTIVE: The patient is seen and examined in the room today. The patient stated that her breathing is improving significantly; however, the patient still complains about intermittent cough with difficulty breathing. No overnight events reported. OBJECTIVE: VITAL SIGNS: Temperature is 96.2, pulse 77, respirations 15, blood pressure 139/63, pulse oximetry is 97% on room air. GENERAL: No sign of acute distress. Alert and oriented times three. HEENT: Normocephalic, atraumatic. Extraocular motors are grossly intact. CARDIOVASCULAR: Positive S1, S2. Regular rate. LUNGS: Positive for expiratory wheezes, any type of deep breaths will trigger severe cough. Positive bilateral crackles. ABDOMEN: Soft, nontender, nondistended. Bowel sounds present. EXTREMITIES: No edema. No sign of cyanosis. LABORATORY DATA: WBC 8.6, hemoglobin 10.6, hematocrit 32.3, platelet count is 418. Sodium is 137, potassium 4.1, chloride 103, carbon dioxide 29, BUN 10, creatinine is 0.66, GFR greater than 60, fasting glucose is 94, calcium is 8, C-reactive protein is 2.84. ASSESSMENT AND PLAN: 1. Pneumonia secondary H. Influenzae and Streptococcus constellatus. Sputum culture was obtained on 01/26 and 01/25/2017. The patient has a history of failed outpatient therapy. The patient has shown continued improvement with the Levaquin. C-reactive protein continues to improve. The patient has Robitussin DM as needed. 2. Costochondritis, most likely due to severe cough. CTA is negative for pulmonary embolus. 3. History of asthma and bronchiectasis. Breathing treatment as needed. The patient is on IV Solu-Medrol. 4. History of essential tremor, on primidone. 5. Deep vein thrombosis (DVT) prophylaxis. On Lovenox.
[2017-02-01] MEDS: LevoFLOXacin 750 MG TABLET PO SCH (18:12)
[2017-02-01] MEDS: IBUPROFEN 400 MG TAB PO PRN (20:02)
[2017-02-01] MEDS: predniSONE 20 MG TAB PO SCH (20:02)
[2017-02-01] MEDS: ASPIRIN 81 MG ENTERIC TAB PO SCH (20:02)
[2017-02-01 22:00] VITALS: BP 123/59
[2017-02-02] MEDS: guaiFENesin/CODEINE SYRUP 5 ML UDC PO PRN ×5 (03:41→20:59)
[2017-02-02] MEDS: IPRATROPIUM 0.5MG/ALBUTEROL 2.5MG INH SOL UD 3ML (DUONEB)(J7620) NEB SCH ×7 (04:00→23:12)
[2017-02-02 06:00] VITALS: BP 117/63
[2017-02-02 07:03] LABS: BASO % 0.2 % (0.0-1.0); EOS % 0.4 % (0.0-3.0); LARGE UNSTAINED CELL # 0.1 K/mm3 (0.0-0.4); LARGE UNSTAINED CELL % 0.8 % (0.0-4.0); LYMPH # 0.9 K/mm3 (1.5-4.5); MEAN CORPUSCULAR HEMOGLOBIN 32.2 pg (27.0-33.0); MEAN CORPUSCULAR HGB CONC 33.1 g/dl (32.0-36.5); MEAN CORPUSCULAR VOLUME 97.4 fl (80.0-96.0); MONO # 0.4 K/mm3 (0.0-0.8); MONO % 4.8 % (0.0-5.0); NEUTROPHILS # 6.1 K/mm3 (1.8-7.7); NEUTROPHILS % 81.8 % (36.0-66.0); PLATELET COUNT, AUTOMATED 435 k/mm3 (150-450); RED CELL DISTRIBUTION WIDTH 12.5 % (11.5-14.5); WHITE BLOOD COUNT 7.4 K/mm3 (4.0-10.0)
[2017-02-02 07:07] LABS: ANION GAP 4 MEQ/L (8-16); BLOOD UREA NITROGEN 10 MG/DL (7-18); CALCIUM LEVEL 8.4 MG/DL (8.8-10.2); CARBON DIOXIDE LEVEL 32 MEQ/L (21-32); CHLORIDE LEVEL 101 MEQ/L (98-107); CREATININE FOR GFR 0.66 MG/DL (0.55-1.02); GLOMERULAR FILTRATION RATE > 60.0 (>45); GLUCOSE, FASTING 118 MG/DL (80-110); POTASSIUM SERUM 4.5 MEQ/L (3.5-5.1); SODIUM LEVEL 137 MEQ/L (136-145)
[2017-02-02] MEDS: predniSONE 20 MG TAB PO SCH ×2 (08:12→20:59)
[2017-02-02] MEDS: PROPRANOLOL 20 MG TAB PO SCH ×2 (08:12→16:36)
[2017-02-02] MEDS: LACTOBACILLUS ACIDOPHILUS CAP (BACID) PO SCH (08:12)
[2017-02-02] MEDS: DOCUSATE SODIUM 100 MG CAP PO SCH ×2 (08:12→20:59)
[2017-02-02] MEDS: ENOXAPARIN 40 MG/0.4 ML SYRINGE (J1650) SC SCH (08:13)
[2017-02-02] MEDS: MIRALAX *UNIT DOSE* 17GM PACKET PO SCH ×2 (08:13→20:58)
[2017-02-02] MEDS: PRIMIDONE 50 MG TAB PO SCH ×2 (08:13→16:37)
[2017-02-02] MEDS: LevoFLOXacin 750 MG TABLET PO SCH (16:36)
[2017-02-02] MEDS: FLUCONAZOLE 100 MG TAB PO SCH (16:37)
--- NOTE | 2017-02-02 17:23 | IPN ---
DATE: 02/02/2017 SUBJECTIVE: The patient seen and examined in the room today. The patient feels her breathing is improving, but very slowly. The patient continues to have uncontrolled cough, resulting in bilateral lower rib pain and muscle pain. The patient stated she was requesting the Robitussin [place] more frequently. No overnight events are reported. The patient states she is very scared to go home at this moment, because she is not sure she can take care of herself with her current condition. The patient has a history of outpatient antibiotic therapy. OBJECTIVE: VITAL SIGNS: Temperature 98.3, pulse 69, respirations 18, blood pressure 117/63, pulse oximetry 97% on room air. GENERAL: No sign of acute distress. Alert and oriented times three. HEENT: Normocephalic, atraumatic. Extraocular motor grossly intact. CARDIOVASCULAR: Positive S1, S2, regular rate. LUNGS: Positive expiratory wheezes. Whenever patient is taking a deep breath there was uncontrolled severe cough resulting in respiratory distress. Still mild bilateral crackles. ABDOMEN: Soft, nontender, nondistended. Bowel sounds present. No rebound. No guarding. EXTREMITIES: No edema, no sign of cyanosis. LABORATORY DATA: WBC 7.4, hemoglobin 11, hematocrit 3.3, platelet count is 435. Sodium is 137, potassium 4.5, chloride 101, carbon dioxide 32, BUN 10, creatinine 0.66, GFR greater than 60. Fasting glucose 118. Calcium 8.4. C-reactive protein is 1.87. ASSESSMENT AND PLAN: 1. Pneumonia secondary to H. Influenzae and Streptococcus constellatus. Sputum culture was obtained January 25 and January 26. The patient has a history of failed outpatient antibody therapy. The patient's C-reactive protein continues to improve with Levaquin. Recommend the patient use Robitussin more frequently to control the cough, which will help her with the respiratory distress. The sputum culture obtained on January 25 and January 26 both show mold-like organisms. After discussion with the patient, she agreed to start a trial of Diflucan. 2. Costochondritis, most likely secondary to muscle strain from severe cough. CTA is negative for pulmonary embolus. Recommend patient it should get better with cough suppression from the cough syrup, which will help with patient's costochondritis. 3. History of asthma and bronchiectasis. The patient is on steroids. The patient has breathing treatment as needed. Recommend the patient use the cough syrup to control her symptoms. 4. History of essential tremor, on primidone. 5. Deep vein thrombosis (DVT) prophylaxis. On Lovenox.
[2017-02-02] MEDS: IBUPROFEN 400 MG TAB PO PRN (20:59)
[2017-02-02] MEDS: ASPIRIN 81 MG ENTERIC TAB PO SCH (20:59)
[2017-02-02 22:00] VITALS: BP 161/73
[2017-02-03] MEDS: guaiFENesin/CODEINE SYRUP 5 ML UDC PO PRN ×5 (01:03→21:15)
[2017-02-03] MEDS: IPRATROPIUM 0.5MG/ALBUTEROL 2.5MG INH SOL UD 3ML (DUONEB)(J7620) NEB SCH ×6 (03:42→23:16)
[2017-02-03 06:00] VITALS: BP 140/67
[2017-02-03 07:34] LABS: BASO % 0.1 % (0.0-1.0); EOS % 0.1 % (0.0-3.0); LARGE UNSTAINED CELL # 0.1 K/mm3 (0.0-0.4); LARGE UNSTAINED CELL % 0.8 % (0.0-4.0); LYMPH # 0.9 K/mm3 (1.5-4.5); LYMPH % 10.9 % (24.0-44.0); MEAN CORPUSCULAR HEMOGLOBIN 32.3 pg (27.0-33.0); MEAN CORPUSCULAR HGB CONC 33.5 g/dl (32.0-36.5); MEAN CORPUSCULAR VOLUME 96.4 fl (80.0-96.0); MONO # 0.2 K/mm3 (0.0-0.8); MONO % 2.8 % (0.0-5.0); NEUTROPHILS # 6.5 K/mm3 (1.8-7.7); NEUTROPHILS % 85.2 % (36.0-66.0); PLATELET COUNT, AUTOMATED 510 k/mm3 (150-450); RED CELL DISTRIBUTION WIDTH 12.4 % (11.5-14.5); WHITE BLOOD COUNT 7.7 K/mm3 (4.0-10.0)
[2017-02-03 07:51] LABS: ANION GAP 5 MEQ/L (8-16); BLOOD UREA NITROGEN 11 MG/DL (7-18); CALCIUM LEVEL 8.7 MG/DL (8.8-10.2); CARBON DIOXIDE LEVEL 32 MEQ/L (21-32); CHLORIDE LEVEL 99 MEQ/L (98-107); CREATININE FOR GFR 0.66 MG/DL (0.55-1.02); GLOMERULAR FILTRATION RATE > 60.0 (>45); GLUCOSE, FASTING 120 MG/DL (80-110); POTASSIUM SERUM 4.4 MEQ/L (3.5-5.1); SODIUM LEVEL 136 MEQ/L (136-145)
[2017-02-03] MEDS: MIRALAX *UNIT DOSE* 17GM PACKET PO SCH ×2 (09:02→21:15)
[2017-02-03] MEDS: ENOXAPARIN 40 MG/0.4 ML SYRINGE (J1650) SC SCH (09:02)
[2017-02-03] MEDS: PRIMIDONE 50 MG TAB PO SCH ×2 (09:03→17:35)
[2017-02-03] MEDS: FLUCONAZOLE 100 MG TAB PO SCH (09:03)
[2017-02-03] MEDS: LACTOBACILLUS ACIDOPHILUS CAP (BACID) PO SCH (09:03)
[2017-02-03] MEDS: PROPRANOLOL 20 MG TAB PO SCH ×2 (09:03→17:35)
[2017-02-03] MEDS: predniSONE 20 MG TAB PO SCH ×2 (09:03→21:15)
[2017-02-03] MEDS: DOCUSATE SODIUM 100 MG CAP PO SCH ×2 (09:04→21:15)
--- NOTE | 2017-02-03 16:21 | IPN ---
DATE: 02/03/2017 SUBJECTIVE: The patient seen and examined in the room today. The patient stated her cough has been better controlled. Patient does not have any fevers. She feels her breathing shows significant improvement. OBJECTIVE: VITAL SIGNS: Temperature 98.1, pulse 69, respirations 16, blood pressure 140/67, pulse oximetry 100% on room air. GENERAL: No sign of acute distress. Alert and oriented times three. HEENT: Normocephalic, atraumatic. Extraocular motor grossly intact. CARDIOVASCULAR: Positive S1, S2, regular rate. LUNGS: Intermittent positive for expiratory wheezes. Mild crackles. ABDOMEN: Soft, nontender, nondistended. Bowel sounds present. No rebound. No guarding. EXTREMITIES: No edema, no sign of cyanosis. LABORATORY DATA: WBC 7.7, hemoglobin 11.5, hematocrit 34.2, platelet count is 510. Sodium is 136, potassium 4.4, chloride 99, carbon dioxide 32, BUN 11, creatinine 0.66, GFR greater than 60. Fasting glucose 120. Calcium 8.7. C-reactive protein is 1.32. ASSESSMENT AND PLAN: 1. Pneumonia secondary to H. Influenzae and Streptococcus constellatus. The patient failed outpatient therapy. Patient has been on Levaquin since admission. Patient's C-reactive protein continues to improve. Patient continues to use Robitussin to control her cough, and we anticipate patient may be discharged tomorrow. 2. Costochondritis, secondary to muscle strain from frequent severe cough. CTA was negative for pulmonary embolus. Patient has achieved better cough suppression from frequent cough syrup usage, and her costochondritis also shows significant improvement. 3. History of asthma and bronchiectasis. The patient is on steroids. Start to taper. 4. History of essential tremor, on primidone. 5. Deep vein thrombosis (DVT) prophylaxis. On Lovenox.
[2017-02-03] MEDS: LevoFLOXacin 750 MG TABLET PO SCH (17:34)
[2017-02-03] MEDS: ASPIRIN 81 MG ENTERIC TAB PO SCH (21:15)
[2017-02-03 22:00] VITALS: BP 150/67
[2017-02-04] MEDS: guaiFENesin/CODEINE SYRUP 5 ML UDC PO PRN ×3 (03:02→12:53)
[2017-02-04] MEDS: IPRATROPIUM 0.5MG/ALBUTEROL 2.5MG INH SOL UD 3ML (DUONEB)(J7620) NEB SCH ×3 (04:00→11:15)
[2017-02-04 06:00] VITALS: BP 131/65
[2017-02-04 07:06] LABS: EOS % 0.1 % (0.0-3.0); LARGE UNSTAINED CELL % 0.4 % (0.0-4.0); LYMPH # 0.7 K/mm3 (1.5-4.5); LYMPH % 7.3 % (24.0-44.0); MEAN CORPUSCULAR HEMOGLOBIN 32.7 pg (27.0-33.0); MEAN CORPUSCULAR HGB CONC 33.6 g/dl (32.0-36.5); MEAN CORPUSCULAR VOLUME 97.4 fl (80.0-96.0); MONO # 0.3 K/mm3 (0.0-0.8); MONO % 2.9 % (0.0-5.0); NEUTROPHILS # 8.5 K/mm3 (1.8-7.7); NEUTROPHILS % 89.2 % (36.0-66.0); PLATELET COUNT, AUTOMATED 507 k/mm3 (150-450); RED CELL DISTRIBUTION WIDTH 12.5 % (11.5-14.5); WHITE BLOOD COUNT 9.5 K/mm3 (4.0-10.0)
[2017-02-04 07:18] LABS: ANION GAP 5 MEQ/L (8-16); BLOOD UREA NITROGEN 14 MG/DL (7-18); CALCIUM LEVEL 8.6 MG/DL (8.8-10.2); CARBON DIOXIDE LEVEL 31 MEQ/L (21-32); CHLORIDE LEVEL 98 MEQ/L (98-107); CREATININE FOR GFR 0.72 MG/DL (0.55-1.02); GLOMERULAR FILTRATION RATE > 60.0 (>45); GLUCOSE, FASTING 134 MG/DL (80-110); POTASSIUM SERUM 4.3 MEQ/L (3.5-5.1); SODIUM LEVEL 134 MEQ/L (136-145)
[2017-02-04] MEDS: LACTOBACILLUS ACIDOPHILUS CAP (BACID) PO SCH (08:45)
[2017-02-04] MEDS: DOCUSATE SODIUM 100 MG CAP PO SCH (08:45)
[2017-02-04] MEDS: MIRALAX *UNIT DOSE* 17GM PACKET PO SCH (08:45)
[2017-02-04 08:46] VITALS: BP 131/65
[2017-02-04] MEDS: PRIMIDONE 50 MG TAB PO SCH (08:46)
[2017-02-04] MEDS: FLUCONAZOLE 100 MG TAB PO SCH (08:46)
[2017-02-04] MEDS: PROPRANOLOL 20 MG TAB PO SCH (08:46)
[2017-02-04] MEDS: predniSONE 20 MG TAB PO SCH (08:46)
[2017-02-04] MEDS: ENOXAPARIN 40 MG/0.4 ML SYRINGE (J1650) SC SCH (08:46)
[2017-02-04] MEDS ORDERED: GUAI5ELAC PO (10:22)
[2017-02-04] MEDS ORDERED: LEVA750T PO (10:22)
[2017-02-04] MEDS ORDERED: PRED10TA PO (10:22)
[2017-02-04] MEDS ORDERED: FLUC10TA PO (10:22)
--- NOTE | 2017-02-04 23:04 | DSES ---
DATE OF ADMISSION: 01/29/2017 DATE OF DISCHARGE: 02/04/2017 PRIMARY CARE PROVIDER: Vivian Barragan CONSULTANTS: None PROCEDURES: None. COMPLICATIONS: None. ADMISSION/DISCHARGE DIAGNOSES: 1. Pneumonia secondary to influenza and Streptococcus constellatus. 2. Costochondritis. 3. Asthma and bronchiectasis. 4. Essential tremor. HOSPITALIZATION COURSE: The patient is a 66-year-old female presented to [facility] on 01/29/2017 for respiratory distress. The patient had a history of failing outpatient antibiotic treatment and the patient is admitted to the hospital and the patient started on empiric antibiotic, Levaquin. Later, the sputum culture from January 25 and January 26 came back positive for Haemophilus influenza, Streptococcus constellatus. It is also more like organism detected on both sputum samples with antibiotic treatment. The patient show gradual improvement of her respiratory symptoms. The patient has severe cough that was also controlled with scheduled cough syrup. February 04, 2017, the patient was found to have almost complete resolution of her symptoms. The patient was discharged home with recommendation to followup with her primary care provider within one week. OBJECTIVE: VITAL SIGNS: Temperature is 98.6, pulse is 75, respirations 14, blood pressure is 131/65, pulse oximetry 95% on room air. LABORATORY DATA: White blood count (WBC) 9.5, hemoglobin 11.5, hematocrit 34.4, platelet count is 507. Sodium is 134, potassium is 4.3, chloride 98, CO2 31, BUN 14, creatine 0.72, glomerular filtration rate (GFR) greater than 60, fasting glucose 134, calcium is 8.6, C-reactive protein is 0.88 (on the day of admission, the patient has C-reactive protein (CRP) of 7.89). Urinalysis is negative. Microbiology: Blood cultures negative after five days, times two sets, sample obtained on January 29, 2017. IMAGING STUDY: CT of the chest show right lower lobe infiltrate or atelectasis. CT angiogram of the chest show no pulmonary embolism. A small 6 mm left lower lobe parenchymal nodule changed in size compared to previous study. DISCHARGE MEDICATIONS: - Diflucan 400 mg by mouth daily for three more days - Cough syrup with codeine 10 mL by mouth q4 hours as needed for seven more days. - Levaquin 750 mg by mouth daily for three more days - prednisone tapering dose. - albuterol 2 puff inhalation every 4 hours as needed - aspirin 81 mg by mouth every p.m. - vitamin B complex one time by mouth daily. - vitamin E 200 units by mouth daily - calcium/vitamin D supplement one tablet by mouth daily - vitamin D3 2000 units by mouth daily - Breo one puff inhalation daily - omega 3 one tab by mouth every daily - primidone 200 mg by mouth every a.m. - primidone 100 mg by mouth every pm - propranolol 20 mg by mouth twice a day DISCHARGE INSTRUCTIONS: Discontinue line. Discharge home. Activity as tolerated. Diet as tolerated. The patient should followup with the primary care provider within one week. Discharge time greater than 30 minutes. The patient's discharge condition, stable.
== END 2017-02-04 14:45 | disposition home or self-care (01) | DRG 194 ==
LOC: M ED 16:19 → M ED INP 18:48 → M MS5PR 20:43
PROVIDERS: ADMIT Internal Medicine; ATTEND Internal Medicine
DX: J10.00 Influenza due to other identified influenza virus with unspecified type of pneumonia (principal); E87.1 Hypo-osmolality and hyponatremia; J45.909 Unspecified asthma, uncomplicated; M94.0 Chondrocostal junction syndrome [Tietze]; R25.1 Tremor, unspecified; Z79.899 Other long term (current) drug therapy; Z79.82 Long term (current) use of aspirin; R91.1 Solitary pulmonary nodule; Z79.52 Long term (current) use of systemic steroids; Z85.828 Personal history of other malignant neoplasm of skin; Z88.5 Allergy status to narcotic agent; D64.9 Anemia, unspecified; E16.2 Hypoglycemia, unspecified

== ENCOUNTER → 2017-02-18 | Outpatient (REF) | payer MEDICARE, OTHER ==
[~2017-02-18] MED LIST changes: +ALB2.5NEB INH; +ASPI1TAB PO; +BOTO200I INJ; +BUTACAP3 PO; +DEXA0.5E2 IVP; +FLUC10TA PO; +GUAI5ELAC PO; +LEVA750T PO; +MOXI1TAB PO; +OMEG100011 PO; +PRED10TA PO; +PRIM50TA6 PO; +VITA20008 PO; +VITACAP8 PO
[2017-02-22 00:06] LABS: PHENOBARBITAL (PRIMIDONE) 9 ug/mL (15-40)
== END ==
LOC: M LABNEURO 11:24
PROVIDERS: ATTEND Physician Assistant Medical
DX: R25.1 Tremor, unspecified (principal)

== ENCOUNTER → 2017-08-02 | Outpatient (REF) | payer MEDICARE, OTHER ==
[~2017-08-02] MED LIST changes: +HYDR5LIQ2 PO; -HYDRLIQ11 PO; -LEVA750T PO; +LEVA750T7 PO; -MUCI600T34 PO; +MUCI600T37 PO; -PRED10TA PO; +PRED10TA2 PO; -PROA1AER INH; +PROAAER10 INH
[2017-08-02 19:42] LABS: INR 0.94
== END ==
LOC: M LAB REF 17:46
PROVIDERS: ATTEND Internal Medicine
DX: Z01.818 Encounter for other preprocedural examination (principal); Z79.01 Long term (current) use of anticoagulants

== ENCOUNTER → 2017-09-01 | Outpatient (REF) | payer MEDICARE, OTHER ==
[2017-09-07 00:07] LABS: STRIATIONAL ANTIBODIES Negative (Neg:<1:40)
[2017-09-07 00:07] LABS: ACETYLCHOLINE RCPTOR BINDING A < 0.03 nmol/L (0.00-0.24)
== END ==
LOC: M LABNEURO 11:07
DX: G70.00 Myasthenia gravis without (acute) exacerbation (principal)
CPT/HCPCS: 86255

== ENCOUNTER → 2018-07-19 | Outpatient (REF) | payer MEDICARE, OTHER ==
[2018-07-19 13:26] LABS: BASO # 0.1 10^3/uL (0.0-0.2); BASO % 0.9 % (0.0-1.0); EOS # 0.3 10^3/uL (0.0-0.50); EOS % 4.6 % (0.0-3.0); HEMATOCRIT 36.2 % (36.0-47.0); HEMOGLOBIN 11.8 g/dl (12.0-15.5); IMMATURE GRANULOCYTE % 0.6 % (0-3.0); LYMPH # 2.1 10^3/uL (1.5-4.5); LYMPH % 31.3 % (24.0-44.0); MEAN CORPUSCULAR HEMOGLOBIN 31.9 pg (27.0-33.0); MEAN CORPUSCULAR HGB CONC 32.6 g/dl (32.0-36.5); MEAN CORPUSCULAR VOLUME 97.8 fl (80.0-96.0); MONO # 0.9 10^3/uL (0.0-0.8); MONO % 12.7 % (0.0-5.0); NEUTROPHILS # 3.4 10^3/uL (1.8-7.7); NEUTROPHILS % 49.9 % (36.0-66.0); PLATELET COUNT, AUTOMATED 342 10^3/uL (150-450); RED CELL DISTRIBUTION WIDTH 12.3 % (11.5-14.5); WHITE BLOOD COUNT 6.8 10^3/uL (4.0-10.0)
[2018-07-27 00:30] LABS: CHLAMYDIA PNEUMONIAE IgG <1:16 (Neg:<1:16); CHLAMYDIA PNEUMONIAE IgM <1:10 (Neg:<1:10); L PNEUMOPHILIA 1-6 IgM < 1:16 (< 1:16); MYCOPLASMA PNEUMONIAE IgG <100 U/mL (0-99); MYCOPLASMA PNEUMONIAE IgM <770 U/mL (0-769)
[2018-07-27 00:30] LABS: L PNEUMOPHILIA 1-6 IgG <1:128 (<1:128)
== END ==
LOC: M LAB REF 12:56
DX: J47.9 Bronchiectasis, uncomplicated (principal); R05 Cough
CPT/HCPCS: 86713

== ENCOUNTER → 2018-07-26 | Outpatient (CLI) | payer MEDICARE, BC, OTHER | LOC: M PLARAD 07:39 | DX: R91.8 Other nonspecific abnormal finding of lung field (principal) | CPT/HCPCS: 78815 ==

== ENCOUNTER → 2018-08-02 | Outpatient (REF) | payer MEDICARE, OTHER ==
[2018-08-02 13:41] LABS: PLATELET COUNT, AUTOMATED 271 10^3/uL (150-450)
[2018-08-02 13:52] LABS: INR 0.93; PARTIAL THROMBOPLASTIN TIME 23.2 SECONDS (25.4-37.6); PROTHROMBIN TIME 12.5 SECONDS (12.1-14.4)
== END ==
LOC: M LAB REF 13:03
DX: R91.8 Other nonspecific abnormal finding of lung field (principal)
CPT/HCPCS: 85049

== ENCOUNTER → 2018-08-14 | Outpatient (CLI) | payer MEDICARE, BC, OTHER ==
[~2018-08-14] MED LIST changes: +GUAI1SOL7 PO; -GUAI5ELAC PO; +LEVO10VL IM; +LIDOCAINE 1% MDV 20ML VIAL As Ordered ONE; -PROP1TAB29 PO; +PROP20TA72 PO
--- NOTE | 2018-08-14 10:29 | REP ---
Chest x-ray: PA view. History: Status post a right middle lobe needle biopsy. Rule out pneumothorax. Findings: The lungs are well inflated and free of infiltrate. No pneumothorax or hydrothorax is seen. Cardiomediastinal silhouette is unremarkable. There is a orthopedic anchors in the right humeral head. Pulmonary vasculature is not increased. Heart is not enlarged. Impression: No complication is seen. Electronically Signed by Alexey Wilkerson MD 08/14/2018 10:20 A
--- NOTE | 2018-08-14 19:57 | REP ---
CT-GUIDED RIGHT MIDDLE LOBE LUNG BIOPSY The procedure was performed under the direct supervision of Dr. Wilkerson. The patient has a history of A hypermetabolic right middle lobe lung nodule seen on a previous PET scan dated 07/26/2018. The risks and benefits of the procedure were explained to the patient and informed consent was obtained. The right middle lobe lung nodule was localized using CT guidance. The skin was prepped and draped in a sterile fashion. 1% lidocaine was used as a local anesthetic. Using CT guidance a 19/20 gauge coaxial needle biopsy system was inserted and advanced into the nodule. Seven core biopsy samples were obtained and sent to lab. The patient tolerated the procedure well and there were no immediate complications. After the appropriate amount of monitored convalescence the patient was discharged from the department. Reviewed by BREANN Travis 08/14/2018 04:50 P Electronically Signed by Alexey Wilkerson MD 08/14/2018 07:47 P
== END ==
LOC: M RADPRO 08:27
PROVIDERS: ATTEND Internal Medicine Pulmonary Disease
DX: R91.8 Other nonspecific abnormal finding of lung field (principal); G25.0 Essential tremor; J45.40 Moderate persistent asthma, uncomplicated; Z88.5 Allergy status to narcotic agent; Z79.51 Long term (current) use of inhaled steroids; Z79.899 Other long term (current) drug therapy; Z79.890 Hormone replacement therapy

== ENCOUNTER → 2018-12-27 | Outpatient (CLI) | payer MEDICARE, BC, OTHER ==
[~2018-12-27] MED LIST changes: +ACYC1CAP20 PO; -ACYC200CA PO; -ASPI1TAB PO; -ASPI81CH32 PO; +ASPI81CH33 PO; +ASPI81TA26 PO; -LIDOCAINE 1% MDV 20ML VIAL As Ordered ONE
[2018-12-27 10:13] LABS: BLOOD UREA NITROGEN 17 MG/DL (7-18); CREATININE FOR GFR 0.83 MG/DL (0.55-1.30); GLOMERULAR FILTRATION RATE > 60.0 (>45)
== END ==
LOC: M SMT 09:03
PROVIDERS: ATTEND Internal Medicine Pulmonary Disease
DX: R91.8 Other nonspecific abnormal finding of lung field (principal)

== ENCOUNTER → 2019-02-23 | Outpatient (CLI) | payer MEDICARE, BC, OTHER ==
--- NOTE | 2019-02-26 18:21 | SLEEPCENT ---
DATE OF PROCEDURE: 02/24/2019 ORDERED BY: Dr. Andrea Richards Nocturnal polysomnography was performed for evaluation of sleep physiology in this patient with a history of excessive somnolence. 9 hours and 16 minutes of data were reviewed. There were 483 minutes of sleep identified. Sleep latency was normal at 8 minutes. REM sleep onset was delayed at 275 minutes. Sleep architecture improved late in the study but there was significant fragmentation. Overall sleep efficiency was 88.1%. The electrocardiogram showed a sinus rhythm with an average heart rate of 56 beats per minute. Occasional PVCs were seen. Heart rate ranged 40-64. EEG showed reasonably normal waveforms for wake and sleep stages. There were 66 respiratory events identified of 10 seconds in duration or greater for an apnea-hypopnea index of 8.2. The events were primarily obstructive and not primarily associated with any particular sleep stage nor body posture. Snoring was noted. Arousals from respiratory events occurred 6.5 times per hour, oxygen desaturations were seen into the 70s. There was minimal limb activity and remaining measures of sleep physiology were normal. IMPRESSION: Obstructive sleep apnea syndrome (G47.33). Apnea-hypopnea index 8.2. RECOMMENDATIONS: The patient should be encouraged to return to the sleep disorder center for pressure therapy. In the interim alcohol and sedative avoidance should be practiced and caution exercised during operation of motor vehicles.
== END ==
LOC: M SLEEP 19:37
PROVIDERS: ATTEND Internal Medicine Pulmonary Disease
DX: G47.33 Obstructive sleep apnea (adult) (pediatric) (principal)

== ENCOUNTER → 2019-03-09 | Outpatient (CLI) | payer MEDICARE, BC, OTHER ==
--- NOTE | 2019-03-13 10:38 | SLEEPCENT ---
DATE OF PROCEDURE: 03/09/2019 ORDERED BY: Dr. Richards Nocturnal polysomnography was performed for the titration of pressure therapy in this patient with obstructive sleep apnea syndrome. Apnea-hypopnea index of 8.2. For testing, the patient was fit with a ResMed Air Fit F20 full face mask of small size, 4 cm of water pressure was initially applied to the circuit, and the lights were extinguished. 8 hours and 37 minutes of data were reviewed. There were 362 minutes of sleep identified. Sleep latency was prolonged at 39 minutes. Rapid eye movement (REM) latency was prolonged at 321 minutes. Sleep architecture improved late in the study. Overall sleep efficiency was 71.5%. The electrocardiogram showed sinus rhythm with an average heart rate of 56 beats per minute. Electroencephalogram (EEG) showed reasonably normal waveforms for awake and sleep. Persistence of respiratory events prompted increases in CPAP pressure. Optimal palliation was seen with a C-PAP pressure of 20 with which the patient slept through REM without respiratory event or oxygen desaturation. IMPRESSION: Obstructive sleep apnea syndrome (G47.33). RECOMMENDATIONS: Nightly use of pressure therapy 20 cm water.
== END ==
LOC: M SLEEP 19:46
PROVIDERS: ATTEND Internal Medicine Pulmonary Disease
DX: G47.33 Obstructive sleep apnea (adult) (pediatric) (principal)

== ENCOUNTER → 2020-03-11 | Outpatient (REF) | payer MEDICARE, BC, OTHER ==
[2020-03-13 13:51] LABS: FOLATE > 24.0 NG/ML; VITAMIN B12 LEVEL 1522 PG/ML
== END ==
LOC: M LAB REF 12:18
PROVIDERS: ATTEND Internal Medicine
DX: D64.9 Anemia, unspecified (principal)

== ENCOUNTER → 2020-03-17 | Outpatient (REF) | payer MEDICARE, OTHER | LOC: M LAB REF 11:26 | PROVIDERS: ATTEND Internal Medicine | DX: D64.9 Anemia, unspecified (principal) ==

== ENCOUNTER → 2020-03-20 | Outpatient (CLI) | payer MEDICARE, BC, OTHER ==
[~2020-03-20] MED LIST changes: +ISOVUE-370 76% 100ML VIAL As Ordered ONE
--- NOTE | 2020-03-20 11:09 | REP ---
Clinical: Abnormal density in the right middle lobe. Technique: Axial contrast enhanced images from the thoracic inlet to the upper abdomen using 75 ml Isovue 370 intravenous contrast material with coronal and sagittal re-formations. Comparison: 08/04/2017 (outside examination) . Findings: Chronic age-related interstitial changes along with biapical and posterior subpleural scarring appears essentially stable compared to 2017. A 6 mm noncalcified nodule at the lingula (image 65) also remains essentially unchanged. There is a somewhat irregular area of nodular density in the basilar right middle lobe which measures roughly 18 x 10 mm maximal diameter (image 57) which has somewhat changed appearance when compared to prior examination. Finding is nonspecific and may reflect chronic scarring rather than active process. No further acute consolidation, new nodule or mass lesion appreciated. No effusion. No pneumothorax. Tracheobronchial tree is patent. No significant adenopathy. Mediastinum demonstrates normal thoracic aorta, pulmonary vasculature, and heart/pericardium. Limited upper abdomen demonstrates normal bilateral adrenal glands. Surrounding musculoskeletal structures are intact without acute osseous abnormality. Impression: 1. The abnormal density in the right middle lobe is again identified and appears slightly changed in appearance although without significant increase size. Findings may represent chronic scarring rather than active process. 2. Chronic interstitial changes and chronic stable primarily by apical and posterior subpleural scarring again noted. 6 mm noncalcified nodule in the lingula unchanged. 3. No new acute mediastinal or pleuroparenchymal process appreciated. Electronically Signed by Hector Baum MD 03/20/2020 11:00 A
== END ==
LOC: M RAD 09:55
PROVIDERS: ATTEND Internal Medicine
DX: R91.8 Other nonspecific abnormal finding of lung field (principal)
CPT/HCPCS: 71260; Q9967

== ENCOUNTER → 2020-07-15 | Outpatient (REF) | payer MEDICARE, BC, OTHER ==
[~2020-07-15] MED LIST changes: -ISOVUE-370 76% 100ML VIAL As Ordered ONE
[2020-07-17 13:06] LABS: PERCENT SATURATION 38.4 % (13.2-45.0)
== END ==
LOC: M LAB REF 12:11
PROVIDERS: ATTEND Internal Medicine
DX: D64.9 Anemia, unspecified (principal)

== ENCOUNTER → 2021-03-09 | Outpatient (REF) | payer MEDICARE, BC, OTHER | LOC: M LAB REF 13:15 | PROVIDERS: ATTEND Internal Medicine Pulmonary Disease | DX: J47.9 Bronchiectasis, uncomplicated (principal) ==

== ENCOUNTER → 2021-04-07 | Outpatient (REF) | payer MEDICARE, BC, OTHER ==
[2021-04-07 13:57] LABS: BLOOD UREA NITROGEN 17 MG/DL (7-18); CREATININE FOR GFR 0.54 MG/DL (0.55-1.30); GLOMERULAR FILTRATION RATE > 60.0 (>39)
== END ==
LOC: M LAB REF 12:52
PROVIDERS: ATTEND Internal Medicine Pulmonary Disease
DX: R05 Cough (principal)

== ENCOUNTER → 2021-05-06 | Outpatient (CLI) | payer MEDICARE, BC, OTHER ==
[~2021-05-06] MED LIST changes: +ISOVUE-370 76% 100ML VIAL ONE
--- NOTE | 2021-05-06 11:03 | REP ---
INDICATION: COUGH. COMPARISON: Comparison CT study is from March 20, 2020 and January 01, 2019. TECHNIQUE: Helical scanning is acquired following the intravenous injection of 75 mL of Isovue 370. 3 mm axial images are generated. Coronal and sagittal MPR images are compared provided. FINDINGS: Preliminary daylight driller view is unremarkable. There is no evidence of pleural or pericardial effusion. There is a stable precarinal lymph node measuring 10 mm in short axis dimension. This is unchanged from the January 01, 2019 prior study. No evidence of mediastinal or hilar mass or adenopathy. There is good opacification of the pulmonary arterial tree and the thoracic aorta. No acute vascular abnormality is seen. There is a stable 6 mm noncalcified pulmonary nodule in the left lower lobe at the lung base unchanged from January 01, 2019. There is a new peripheral area of consolidation in the left lower lobe inferiorly and laterally in the lateral pleural angle. This area measures 1.6 x 1.4 cm in greatest transverse dimension. There is some linear density above this. This finding is compatible with an inflammatory etiology, IE pneumonia. Previously noted pleuroparenchymal scarring in the right middle lobe is unchanged from March 20, 2020. No other new pulmonary parenchymal infiltrate or consolidation. Biapical pleuroparenchymal fibrosis is seen right more so than left also unchanged from the prior studies. No bony destructive lesion is seen. In the abdomen, normal adrenal glands are observed. The visualized upper abdominal structures are otherwise unremarkable. IMPRESSION: New peripheral area of consolidation in the left lower lobe, most consistent with pneumonia. This should be correlated with the patient's clinical signs and symptoms. Consider follow-up scan. Stable left lower lobe nodule and right middle lobe fibrosis. Otherwise no acute disease. <Electronically signed by Hieu Wilkerson > 05/06/21 1100
== END ==
LOC: M PLAIMG 09:26
PROVIDERS: ATTEND Internal Medicine Pulmonary Disease
DX: R05 Cough (principal); R91.1 Solitary pulmonary nodule; J84.10 Pulmonary fibrosis, unspecified
CPT/HCPCS: 71260; Q9967

== ENCOUNTER → 2021-08-03 | Outpatient (REF) | payer MEDICARE, BC, OTHER ==
[~2021-08-03] MED LIST changes: -ISOVUE-370 76% 100ML VIAL ONE
[2021-08-03 18:04] LABS: BASO # 0.1 10^3/uL (0.0-0.2); BASO % 0.7 % (0.0-1.0); EOS # 0.2 10^3/uL (0.0-0.5); EOS % 3.4 % (0.0-3.0); HEMATOCRIT 39.1 % (36.0-47.0); HEMOGLOBIN 12.7 g/dl (12.0-15.5); LYMPH # 1.1 10^3/uL (1.5-5.0); LYMPH % 15.9 % (24.0-44.0); MEAN CORPUSCULAR HEMOGLOBIN 32.2 pg (27.0-33.0); MEAN CORPUSCULAR HGB CONC 32.5 g/dl (32.0-36.5); MEAN CORPUSCULAR VOLUME 99.2 fl (80.0-96.0); MONO # 0.8 10^3/uL (0.0-0.8); MONO % 11.3 % (2.0-8.0); NEUTROPHILS # 4.6 10^3/uL (1.5-8.5); NEUTROPHILS % 68.4 % (36.0-66.0); PLATELET COUNT, AUTOMATED 295 10^3/uL (150-450); RED BLOOD COUNT 3.94 10^6/uL (4.00-5.40); WHITE BLOOD COUNT 6.7 10^3/uL (4.0-10.0)
[2021-08-03 18:36] LABS: ALBUMIN 3.7 GM/DL (3.2-5.2); ALT/SGPT 73 U/L (12-78); BILIRUBIN,DIRECT < 0.1 MG/DL (0.0-0.2); BILIRUBIN,TOTAL 0.2 MG/DL (0.2-1.0); BLOOD UREA NITROGEN 14 MG/DL (7-18); CALCIUM LEVEL 9.2 MG/DL (8.8-10.2); CARBON DIOXIDE LEVEL 31 MEQ/L (21-32); CHLORIDE LEVEL 101 MEQ/L (98-107); FREE T4 1.25 NG/DL (0.76-1.46); GLOMERULAR FILTRATION RATE > 60.0 (>39); GLUCOSE, FASTING 106 MG/DL (70-100); POTASSIUM SERUM 4.5 MEQ/L (3.5-5.1); SODIUM LEVEL 136 MEQ/L (136-145)
== END ==
LOC: M LABDRWAD 17:06
PROVIDERS: ATTEND Nurse Practitioner Family
DX: L29.8 Other pruritus (principal)

== ENCOUNTER → 2021-12-28 | Outpatient (CLI) | payer MEDICARE, BC, OTHER ==
[2021-12-28 10:29] LABS: BLOOD UREA NITROGEN 17 MG/DL (7-18); CREATININE FOR GFR 0.73 MG/DL (0.55-1.30); GLOMERULAR FILTRATION RATE > 60.0 (>39)
== END ==
LOC: M LAB 09:00
PROVIDERS: ATTEND Internal Medicine Pulmonary Disease
DX: J47.9 Bronchiectasis, uncomplicated (principal)

== ENCOUNTER → 2021-12-30 | Outpatient (CLI) | payer MEDICARE, BC, OTHER ==
[~2021-12-30] MED LIST changes: +ISOVUE-370 76% 100ML VIAL As Ordered ONE
== END ==
LOC: M RAD 09:24
PROVIDERS: ATTEND Internal Medicine Pulmonary Disease
DX: J47.9 Bronchiectasis, uncomplicated (principal); R91.1 Solitary pulmonary nodule; R91.8 Other nonspecific abnormal finding of lung field
CPT/HCPCS: 71260; Q9967

== ENCOUNTER → 2022-07-07 | Outpatient (CLI) | payer MEDICARE, BC, OTHER ==
[~2022-07-07] MED LIST changes: -ISOVUE-370 76% 100ML VIAL As Ordered ONE
== END ==
LOC: M RAD 11:26
PROVIDERS: ATTEND Internal Medicine Pulmonary Disease
DX: J45.40 Moderate persistent asthma, uncomplicated (principal); R91.8 Other nonspecific abnormal finding of lung field; I25.10 Atherosclerotic heart disease of native coronary artery without angina pectoris

== ENCOUNTER → 2022-08-16 | Outpatient (REF) | payer MEDICARE, OTHER ==
[2022-08-16 16:47] LABS: HEMATOCRIT 37.5 % (36.0-47.0); HEMOGLOBIN 12.4 g/dl (12.0-15.5); MEAN CORPUSCULAR HGB CONC 33.1 g/dl (32.0-36.5); MEAN CORPUSCULAR VOLUME 102.7 fl (80.0-96.0); PLATELET COUNT, AUTOMATED 313 10^3/uL (150-450); RED BLOOD COUNT 3.65 10^6/uL (4.00-5.40); WHITE BLOOD COUNT 5.5 10^3/uL (4.0-10.0)
[2022-08-16 17:21] LABS: FERRITIN 42.3 NG/ML (7.3-270.7); PERCENT SATURATION 33.1 % (13.2-45.0)
[2022-08-16 17:22] LABS: FOLATE 14.8 NG/ML (>5.4)
[2022-08-16 17:30] LABS: ATYPICAL LYMPH 2 % (0-5); BASOPHILS 1 % (0-1); EOSINOPHILS 2 % (0-3); LYMPHOCYTES 18 % (16-44); MONOCYTES 6 % (0-5); NEUTROPHILS 71 % (28-66); PLATELET ESTIMATE NORMAL (NORMAL)
== END ==
LOC: M LAB REF 16:24
PROVIDERS: ATTEND Internal Medicine
DX: D64.9 Anemia, unspecified (principal); G82.20 Paraplegia, unspecified

== ENCOUNTER → 2022-12-16 | Outpatient (CLI) | payer MEDICARE, BC, OTHER ==
[2022-12-16 15:20] LABS: BASO # 0.1 10^3/uL (0.0-0.2); BASO % 1.2 % (0.0-1.0); EOS # 0.8 10^3/uL (0.0-0.5); EOS % 11.7 % (0.0-3.0); HEMATOCRIT 38.9 % (36.0-47.0); HEMOGLOBIN 12.6 g/dl (12.0-15.5); IMMUNOGLOBULIN A 152.3 MG/DL (40-350); IMMUNOGLOBULIN G 767 MG/DL (650-1600); IMMUNOGLOBULIN M 22.3 MG/DL (50-300); LYMPH # 1.3 10^3/uL (1.5-5.0); LYMPH % 18.4 % (24.0-44.0); MEAN CORPUSCULAR HEMOGLOBIN 33.8 pg (27.0-33.0); MEAN CORPUSCULAR HGB CONC 32.4 g/dl (32.0-36.5); MEAN CORPUSCULAR VOLUME 104.3 fl (80.0-96.0); MONO # 0.9 10^3/uL (0.0-0.8); MONO % 13.4 % (2.0-8.0); NEUTROPHILS # 3.7 10^3/uL (1.5-8.5); NEUTROPHILS % 54.9 % (36.0-66.0); PLATELET COUNT, AUTOMATED 424 10^3/uL (150-450); RED BLOOD COUNT 3.73 10^6/uL (4.00-5.40); WHITE BLOOD COUNT 6.8 10^3/uL (4.0-10.0)
[2022-12-16 15:28] LABS: ALBUMIN 3.8 G/DL (3.2-5.2); ALKALINE PHOSPHATASE 100 U/L (46-116); ALT/SGPT 33 U/L (7.0-40); AST/SGOT 23 U/L (<34); BILIRUBIN,TOTAL 0.4 MG/DL (0.3-1.2); BLOOD UREA NITROGEN 19 MG/DL (9-23); CALCIUM LEVEL 9.5 MG/DL (8.3-10.6); CARBON DIOXIDE LEVEL 30 MMOL/L (20-31); CHLORIDE LEVEL 102 MMOL/L (98-107); CREATININE FOR GFR 0.75 MG/DL (0.55-1.30); GLOMERULAR FILTRATION RATE > 60.0 (>39); GLUCOSE, FASTING 94 MG/DL (74-106); IMMUNOGLOBULIN E 629.5 IU/ML (0-378); POTASSIUM SERUM 4.9 MMOL/L (3.5-5.1); SODIUM LEVEL 134 MMOL/L (136-145)
[2022-12-16 15:43] LABS: ERYTHROCYTE SEDIMENTATION RATE 36 mm/hr (0-30)
[2022-12-16 15:56] LABS: HIV 1&2 SCREEN CENTAUR NEGATIVE (NEGATIVE)
== END ==
LOC: M PLALAB 09:38
PROVIDERS: ATTEND Internal Medicine Infectious Disease
DX: A31.8 Other mycobacterial infections (principal)

== ENCOUNTER → 2023-05-03 | Outpatient (CLI) | payer MEDICARE, BC, OTHER ==
[~2023-05-03] MED LIST changes: +BUTA1CAP48 PO; -BUTACAP3 PO
== END ==
LOC: M RAD 14:29
PROVIDERS: ATTEND Internal Medicine Pulmonary Disease
DX: J45.40 Moderate persistent asthma, uncomplicated (principal)

== ENCOUNTER → 2023-08-02 | Outpatient (CLI) | payer MEDICARE, BC, OTHER ==
[2023-08-02 13:17] LABS: TOTAL 25(OH) VITAMIN D 37.7 NG/ML (20.0-100.0)
[2023-08-02 13:18] LABS: BLOOD UREA NITROGEN 11 MG/DL (9-23); CALCIUM LEVEL 9.2 MG/DL (8.3-10.6); CARBON DIOXIDE LEVEL 31 MMOL/L (20-31); CHLORIDE LEVEL 101 MMOL/L (98-107); CREATININE FOR GFR 0.77 MG/DL (0.55-1.30); GLOMERULAR FILTRATION RATE > 60.0 (>39); GLUCOSE, FASTING 97 MG/DL (74-106); POTASSIUM SERUM 4.8 MMOL/L (3.5-5.1); SODIUM LEVEL 137 MMOL/L (136-145)
== END ==
LOC: M PLALAB 07:31
PROVIDERS: ATTEND Internal Medicine Endocrinology, Diabetes & Metabolism
DX: M81.0 Age-related osteoporosis without current pathological fracture (principal)

== ENCOUNTER → 2024-01-27 | Outpatient (REF) | payer MEDICARE, OTHER ==
[2024-01-27 14:41] LABS: BLOOD UREA NITROGEN 24 MG/DL (9-23); CALCIUM LEVEL 9.1 MG/DL (8.3-10.6); CARBON DIOXIDE LEVEL 31 MMOL/L (20-31); CHLORIDE LEVEL 101 MMOL/L (98-107); CREATININE FOR GFR 0.77 MG/DL (0.55-1.30); GLOMERULAR FILTRATION RATE > 60.0 (>39); GLUCOSE, FASTING 78 MG/DL (74-106); POTASSIUM SERUM 4.7 MMOL/L (3.5-5.1); SODIUM LEVEL 136 MMOL/L (136-145)
[2024-01-27 14:43] LABS: TOTAL 25(OH) VITAMIN D 22.6 NG/ML (20.0-100.0)
== END ==
LOC: M LABWUC 12:55
PROVIDERS: ATTEND Internal Medicine Endocrinology, Diabetes & Metabolism
DX: M81.0 Age-related osteoporosis without current pathological fracture (principal)

== ENCOUNTER → 2024-06-12 | Outpatient (CLI) | payer MEDICARE, OTHER | LOC: M WUC 14:57 | PROVIDERS: ATTEND Internal Medicine Endocrinology, Diabetes & Metabolism | DX: E55.9 Vitamin D deficiency, unspecified (principal) ==

== ENCOUNTER → 2025-01-05 | Outpatient (CLI) | payer MEDICARE, BC ==
[2025-01-05 13:48] LABS: CALCIUM LEVEL 9.3 MG/DL (8.3-10.6); CREATININE FOR GFR 0.75 MG/DL (0.55-1.30); POTASSIUM SERUM 4.6 MMOL/L (3.5-5.1)
== END ==
LOC: M LAB 12:52
PROVIDERS: ATTEND Nurse Practitioner Family
DX: M81.0 Age-related osteoporosis without current pathological fracture (principal)

== ENCOUNTER → 2025-04-11 | Outpatient (REF) | payer MEDICARE, BC ==
[2025-04-11 18:52] LABS: CALCIUM LEVEL 9.0 MG/DL (8.3-10.6); CARBON DIOXIDE LEVEL 27.0 MMOL/L (20-31); CHLORIDE LEVEL 98.0 MMOL/L (98-107); CREATININE FOR GFR 0.81 MG/DL (0.55-1.30); GLOMERULAR FILTRATION RATE 75.7 (>39); POTASSIUM SERUM 4.3 MMOL/L (3.5-5.1); SODIUM LEVEL 137.0 MMOL/L (136-145)
[2025-04-11 18:55] LABS: TOTAL 25(OH) VITAMIN D 63.6 NG/ML (20.0-100.0)
== END ==
LOC: M LABWUC 17:14 → M LAB REF 17:14
PROVIDERS: ATTEND Nurse Practitioner Family
DX: M81.0 Age-related osteoporosis without current pathological fracture (principal)

== ENCOUNTER → 2025-07-04 | Outpatient (CLI) | payer MEDICARE, BC | LOC: M WUC 13:27 | PROVIDERS: ATTEND Internal Medicine | DX: M54.50 Low back pain, unspecified (principal) ==

== ENCOUNTER → 2025-08-12 | Outpatient (REF) | payer MEDICARE, BC | LOC: M LAB REF 15:17 | PROVIDERS: ATTEND Internal Medicine Infectious Disease | DX: Z22.39 Carrier of other specified bacterial diseases (principal); Z53.9 Procedure and treatment not carried out, unspecified reason ==

== ENCOUNTER → 2025-08-12 | Outpatient (REF) | payer MEDICARE, BC | LOC: M LAB REF 15:15 | PROVIDERS: ATTEND Internal Medicine Pulmonary Disease | DX: J47.9 Bronchiectasis, uncomplicated (principal) ==